=== PATIENT | female | born 1965 | race Caucasian/White ===

== ENCOUNTER → 2016-10-19 | Outpatient (CLI) | payer OTHER ==
--- NOTE | 2016-10-20 00:38 | MR ---
EXAMINATION TYPE: MR humerus LT wo con DATE OF EXAM: 10/19/2016 9:52 AM COMPARISON: NONE HISTORY: 51-year-old female lt bicep tear TECHNIQUE: Multiplanar, multisequence images of the proximal to middle third left humerus were obtain ed without IV contrast. FINDINGS: Exam is markedly suboptimal due to the extent of patient motion. There is prominent resultant noise a nd degradation of image quality. Some linear low signal seen along the bicipital groove suggesting some proximal lung and biceps tendo n. There is moderate surrounding T2 synovial fluid. Limited assessment of the rotator cuff tendons but no evidence for full-thickness tear or rotator cuf f muscle atrophy. No suspicious bone marrow replacement. There is moderate degenerative joint space narrowing with marginal spurring and capsular hypertrophy at the AC joint. Distal biceps tendon not evaluated on this exam. IMPRESSION: 1. Suboptimal study due to the extent of motion artifact. There is moderate tenosynovial fluid seen a long the bicipital groove and some tendon fibers of the long head biceps tendon appear to be visualiz ed. A partial tear cannot be excluded on the basis of this limited exam. 2. If concern for proximal long biceps tendon tear, MRI of the shoulder can be considered. 3. Distal biceps tendon not evaluated on this exam. 4. Moderate AC joint osteoarthrosis.
== END | disposition home or self-care (01) ==
LOC: RADMRIMAIN 08:48
PROVIDERS: ATTEND Family Medicine
DX: M19.012 Primary osteoarthritis, left shoulder (principal)

== ENCOUNTER → 2016-10-29 | Outpatient (CLI) | payer OTHER ==
--- NOTE | 2016-10-29 09:48 | MR ---
EXAMINATION TYPE: MR elbow LT wo con DATE OF EXAM: 10/29/2016 9:04 AM COMPARISON: Left humeral MRI October 19, 2016 HISTORY: Left elbow pain, and limited movement x 8 months. Standard multiplanar, multisequence MRI departmental protocol Multiplanar, multisequence images of the left elbow were acquired. FINDINGS: Exam is suboptimal as patient was unable to complete the entire imaging series and sequence due to extreme pain. Exam had to be terminated prematurely. Images acquired are also suboptimal also due to significant patient motion. There is joint space loss radial head articulation with the capitellum. There is heterogeneous low T1 signal anteriorly with cortical irregularity and subchondral cystic change at level of capitellum an teriorly suggestive of osteochondritis dissecans. There is moderate joint effusion seen best on coron al image 27 extending proximally. Slight irregularity or synovitis is suspected. No definitive loose bodies are identified. There is some spurring at the ulnohumeral articulation on coronal image 24. There is thickening of the proximal ulnar collateral ligament with increased signal. No full-thicknes s tear is present. There is some radial bulging of the extensor tendons with increased signal and thickening at distal h umeral articulation on the lateral epicondyle of the distal humerus. Medial epicondyle and flexor te ndons felt intact. IMPRESSION: As above.
--- NOTE | 2016-10-29 10:34 | XR ---
EXAMINATION TYPE: XR elbow complete LT DATE OF EXAM: 10/29/2016 9:42 AM COMPARISON: NONE HISTORY: 51year-old female left elbow pain for 6 months TECHNIQUE: 3 views FINDINGS: There is degenerative spurring at the ulnotrochlear joint. Some elevation of the posterior fat pad at the elbow. No acute fracture or dislocation seen. IMPRESSION: Ulnotrochlear joint osteoarthrosis. Elbow joint effusion is probably reactive. No acute osseous abnor mality seen.
== END | disposition home or self-care (01) ==
LOC: RADMRIMAIN 08:20
PROVIDERS: ATTEND Family Medicine
DX: M19.022 Primary osteoarthritis, left elbow (principal); M25.422 Effusion, left elbow

== ENCOUNTER → 2016-12-27 | Outpatient (CLI) | payer OTHER ==
--- NOTE | 2016-12-27 12:07 | EST ---
DATE OF SERVICE: AGE: 51Y SEX: F HT: WT: lbs. Protocol Stewart: Other: Stage: Dur. of Exercise: *Heart Rate Blood Pressure *Rest: Rest: * *Max. Achieved: Maximum BP: 85% PMHR: 100% PMHR: *METS: INDICATIONS: Chest pain. MEDICATIONS: Baseline EKG shows sinus tachycardia with a heart rate of 158 beats per minute. Due to this, the stress test was canceled. I called and informed Dr. Brown about it. Patient is to have an echo today. After that, I asked her to go see Dr. Brown that inappropriate sinus tachycardia can be further investigated and treated optimally.
--- NOTE | 2016-12-28 08:48 | ECHOF ---
Referral Reason:R07.9 chest pain MEASUREMENTS -------- HEIGHT: 165.1 cm WEIGHT: 80.7 kg BP: IVSd: 1.0 cm (0.6 - 1.1) LVIDd: 2.2 cm (3.9 - 5.3) LVPWd: 1.3 cm (0.6 - 1.1) IVSs: 1.6 cm LVIDs: 1.4 cm LVPWs: 1.1 cm Ao Diam: 2.9 cm (2.0 - 3.7) AV Cusp: 1.4 cm (1.5 - 2.6) LA Diam: 2.0 cm (2.7 - 3.8) MV EXCURSION: 18.221 mm (> 18.000) MV EF SLOPE: 78 mm/s (70 - 150) EPSS: 0.4 cm MV E Jovi: 1.08 m/s MV DecT: 140 ms MV A Jovi: 1.09 m/s MV E/A Ratio: 0.99 RAP: 5.00 mmHg RVSP: 28.93 mmHg FINDINGS -------- Sinus rhythm. Resting tachycardia (HR>100bpm). This was a technically good study. There is mild concentric left ventricular hypertrophy. Overall left ventricular systolic function is normal with, an EF between 55 - 60 %. The right ventricle is normal in size and function. The left atrium is normal in size. The right atrium is normal in size. The aortic valve is trileaflet, and appears structurally normal. No aortic stenosis or regurgitation. The mitral valve leaflets are mildly thickened. Mild mitral regurgitation is present. Mild tricuspid regurgitation present. The right ventricular systolic pressure, as measured by Doppler, is 28.93mmHg. Pulmonic valve appears structurally normal. The aortic root size is normal. There is a trivial pericardial effusion present. CONCLUSIONS -------- 1. Sinus rhythm. 2. The mitral valve leaflets are mildly thickened. 3. Mild mitral regurgitation is present. 4. Mild tricuspid regurgitation present. 5. The right ventricular systolic pressure, as measured by Doppler, is 28.93mmHg. 6. Pulmonic valve appears structurally normal. 7. The aortic root size is normal. 8. There is a trivial pericardial effusion present. 9. Resting tachycardia (HR>100bpm). 10. This was a technically good study. 11. There is mild concentric left ventricular hypertrophy. 12. Overall left ventricular systolic function is normal with, an EF between 55 - 60 %. 13. The right ventricle is normal in size and function. 14. The left atrium is normal in size. 15. The right atrium is normal in size. 16. The aortic valve is trileaflet, and appears structurally normal. No aortic stenosis or regurgitation. NEWS LIBRARY DIRECTOR: Manisha Mtz RDCS
== END | disposition home or self-care (01) ==
LOC: RADNMMAIN 10:55
PROVIDERS: ATTEND Family Medicine
DX: R00.0 Tachycardia, unspecified (principal); I34.0 Nonrheumatic mitral (valve) insufficiency; I36.1 Nonrheumatic tricuspid (valve) insufficiency; I51.7 Cardiomegaly; I34.8 Other nonrheumatic mitral valve disorders
CPT/HCPCS: 93306

== ENCOUNTER → 2017-02-04 | Outpatient (CLI) | payer OTHER ==
--- NOTE | 2017-02-06 21:30 | MR ---
EXAMINATION TYPE: MR shoulder LT wo con DATE OF EXAM: 02/04/2017 12:32 PM COMPARISON: Outside radiographs 12/28/2016 and humerus MRI 10/19/2016 HISTORY: 52-year-old female with left shoulder pain TECHNIQUE: Multiplanar, multisequence imaging of the left shoulder is performed without contrast. FINDINGS: Long head biceps tendon is visualized but is very diminutive and thin in appearance. No retracted tea r is identified. There is [id number] tenosynovial fluid seen along the bicipital groove. Some intermediate signal involving the subscapularis tendon without tear. There is moderate degenerative joint space narrowing with marginal spurring and some degenerative sub chondral bone marrow edema at the AC joint. Inferior spurring abuts the underlying myotendinous junct ion of the supraspinatus. There is bursal sided fraying of the supraspinatus tendon and some heterogeneous signal involving bot h supraspinatus and infraspinatus tendons. No discrete tear is otherwise seen. Mild thickening of the subacromial/subdeltoid bursa without fluid distention. No rotator cuff muscle atrophy. Some degenerative signal is noted within the glenoid labrum. There is also fluid signal seen undercutting the labral chondral junction anteriorly extending down t o the mid aspect of the anterior glenoid. No para labral cyst. The glenohumeral joint appears intact. No significant joint effusion. No Hill-Sachs deformity or os acromiale. No suspicious bone marrow replacement. IMPRESSION: 1. Mild diffuse rotator cuff tendinosis with bursal sided fraying of the supraspinatus tendon. No hig h-grade partial or full-thickness rotator cuff tear. 2. The long head biceps tendon appears thin and diminutive but intact fibers are seen. Mild extracaps ular long head biceps tenosynovitis. 3. Moderate AC joint osteoarthrosis. Some reactive subarticular bone marrow edema is noted at the peter nt and there may be mild impingement onto the underlying cuff. 4. Degenerative signal within the glenoid labrum. Suspect a prominent sublabral foramen rather than a labral tear anterosuperiorly. Clinical correlate.
== END | disposition home or self-care (01) ==
LOC: RADMRIMAIN 11:54
PROVIDERS: ATTEND Orthopaedic Surgery
DX: M75.80 Other shoulder lesions, unspecified shoulder (principal); M75.20 Bicipital tendinitis, unspecified shoulder; M19.012 Primary osteoarthritis, left shoulder; R93.7 Abnormal findings on diagnostic imaging of other parts of musculoskeletal system

== ENCOUNTER → 2017-03-30 | Outpatient (CLI) | payer OTHER ==
--- NOTE | 2017-03-30 11:05 | US ---
EXAMINATION TYPE: US thyroid st tissue head/neck DATE OF EXAM: 03/30/2017 COMPARISON: NONE CLINICAL HISTORY: R94.6 abn finding. Abnormal thyroid function test GLAND SIZE: Right Lobe: 4.2 x 1.9 x 2.2 cm Overall Parenchyma: heterogenous Left Lobe: 4.1 x 1.7 x 1.9 cm Overall Parenchyma: heterogeneous Isthmus Thickness: 0.4 cm NODULES RIGHT: # of nodules measured on right: 0 LEFT: # of nodules measured on left: 1 1. 0.9 X 0.7 x 0.8 cm isoechoic solid nodule at the mid pole with poorly defined margins; . This n odule is wider than tall and shows intranodular vascularity. Prior size: no prior ISTHMUS: # of nodules measured in the isthmus: 0 Bilateral neck scanned, no evidence of lymphadenopathy. Thyroid gland is normal in size and heterogeneous in appearance. Tiny nodule right thyroid lobe is se en. Technologist marked an isoechoic posterior area measuring 9 mm, I do not feel reflects true solid nodule. IMPRESSION: Thyroid gland is normal in size and heterogeneous in appearance, no worrisome greater adam n 1 cm solid or cystic nodules are seen.
== END | disposition home or self-care (01) ==
LOC: RADUSMAIN 09:59
PROVIDERS: ATTEND Internal Medicine Endocrinology, Diabetes & Metabolism
DX: E04.1 Nontoxic single thyroid nodule (principal)
CPT/HCPCS: 76536

== ENCOUNTER → 2017-07-15 | Outpatient (CLI) | payer OTHER ==
--- NOTE | 2017-07-15 08:47 | XR ---
EXAMINATION TYPE: XR chest 2V DATE OF EXAM: 07/15/2017 COMPARISON: 08/24/2016 INDICATION: Acute bronchitis cough congestion back pain x3 weeks TECHNIQUE: Frontal and lateral views of the chest are obtained. FINDINGS: The heart size is normal. The pulmonary vasculature is normal. The lungs are clear. IMPRESSION: 1. No acute pulmonary process.
== END | disposition home or self-care (01) ==
LOC: RADXRMAIN 08:30
PROVIDERS: ATTEND Family Medicine
DX: J20.8 Acute bronchitis due to other specified organisms (principal)
CPT/HCPCS: 71020

== ENCOUNTER → 2017-08-30 | Outpatient (CLI) | payer OTHER ==
--- NOTE | 2017-08-31 09:26 | MM ---
Reason for exam: screening (asymptomatic). History: Family history of breast cancer in paternal aunt. Physical Findings: A clinical breast exam by your physician is recommended on an annual basis and results should be correlated with mammographic findings. MG 3D Screening Mammo W/Cad Bilateral CC and MLO view(s) were taken. The breast tissue is extremely dense which could obscure a lesion on mammography. Benign calcifications. ASSESSMENT: Incomplete: need additional imaging evaluation, BI-RAD 0 RECOMMENDATION: Ultrasound of the right breast. [facility] will attempt to contact patient to return for ultrasound.
== END ==
LOC: RADMAMWWP 08:21
PROVIDERS: ATTEND Family Medicine
DX: Z12.31 Encounter for screening mammogram for malignant neoplasm of breast (principal)
CPT/HCPCS: 77063; G0202

== ENCOUNTER → 2018-01-03 | Outpatient (CLI) | payer OTHER ==
--- NOTE | 2018-01-03 10:21 | USB ---
Reason for exam: additional evaluation requested from prior study. History: Family history of breast cancer in paternal aunt. Physical Findings: Nurse did not find any significant physical abnormalities on exam. US Breast RT Right breast ultrasound includes all four quadrants, the retroareolar region and axilla. Finding demonstrates no cystic or solid lesion seen. No suspicious sonographic finding. These results were verbally communicated with the patient and result sheet given to the patient on 01/03/18. ASSESSMENT: Negative, BI-RAD 1 RECOMMENDATION: Return to routine screening mammogram schedule for both breasts. Back on schedule. Manage patient on a clinical basis.
== END | disposition home or self-care (01) ==
LOC: RADUSWWP 09:24
PROVIDERS: ATTEND Family Medicine
DX: N64.4 Mastodynia (principal)

== ENCOUNTER → 2018-01-25 | Outpatient (CLI) | payer OTHER ==
[2018-01-25 10:19] VITALS: BP 125/66; PULSE 89; RESP 16; TEMP 96.6; BMI 31.1
--- NOTE | 2018-01-25 11:14 | P.HPOB ---
History of Present Illness H&P Date: 01/25/18 Chief Complaint: The patient is here for her routine gynecologic exam. This is a 53-year-old G3 PIII with an LMP of 09/2016. Patient states it has been about 3 years since her last pelvic exam. She is without gynecologic complaints and denies any postmenopausal bleeding. She has occasional hot flashes which are not very bothersome. She did have a screening mammogram on which did require a right breast ultrasound workup. The right breast ultrasound was done on 01/03/2018 and was negative. Review of Systems She believes she has gained about 30 pounds over the last year and she attributes this to changing from diet cola to regular Pepsi. She denies respiratory or G.I. problems. Cardiac: occasional palpitation and she is missing Dr. Hamilton for this. Past Medical History Past Medical History: Hypertension Additional Past Medical History / Comment(s): Chronic shoulder pain. 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 She is no history of STDs. She has been menopausal since September 2016. Past Surgical History: No Surgical Hx Reported Past Psychological History: No Psychological Hx Reported Smoking Status: Never smoker Past Alcohol Use History: Occasional (About 4 per week.) Past Drug Use History: None Reported Additional History: She has been since 2002 and this is her 2nd marriage. 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 She lives in [place] and works in the [place]. - Past Family History Father Family Medical History: Cancer (Lung) Additional Family Medical History / Comment(s): A paternal aunt had breast cancer. Medications and Allergies Home Medications Medication Instructions Recorded Confirmed Type Losartan Potassium 100 mg PO 01/25/18 History Allergies Allergy/AdvReac Type Severity Reaction Status Date / Time ciprofloxacin Allergy Rash/Hives Verified 01/25/18 10:58 Exam - Vital Signs Vital signs: Vital Signs Temp Pulse Resp BP 01/25/18 10:10 96.6 F L 89 16 125/66 Intake and Output 01/24/18 01/25/18 01/25/18 22:59 06:59 14:59 Other: Weight 84.822 kg Height 5'5", BMI 31.1. This is a well-developed well-nourished white female who is alert and oriented times 3 in no acute distress. HEENT: Within normal limits. NECK: Supple without mass or thyromegaly. CHEST AND LUNGS: Clear to auscultation. HEART: Regular rate and rhythm. BREASTS: Are without mass or discharge. AXILLARY EXAM: Negative for adenopathy. BACK: Negative for CVA tenderness. ABDOMEN: Soft, nontender, without palpable masses. PELVIC EXAM: Normal external genitalia with minimal atrophy. Cervix and vagina appear normal with minimal atrophy. There is no unusual discharge. There is no evidence of prolapse. The uterus is midposition, nongravid size and nontender. There are no palpable adnexal masses or tenderness. RECTAL EXAM: rectovaginal exam is negative for mass or tenderness and is negative for occult blood. EXTREMITIES: Nontender. IMPRESSION: 1. 53-year-old menopausal female with minimal vasomotor symptoms and normal gynecologic exam. PLAN: 1. Pap smear was performed. 2. Self breast awareness was discussed. 3. Screening mammogram was done recently and will be repeated in one year. 4. Osteoporosis prevention was discussed. 5. I have recommended screening colonoscopy based on her age. She will follow- up with Dr. Brown to have this arranged. 6. She will return in one year.
== END ==
LOC: WWCWWP 09:44
PROVIDERS: ATTEND Obstetrics & Gynecology
DX: Z53.9 Procedure and treatment not carried out, unspecified reason (principal)